=== PATIENT | male | born 1975 | race Caucasian/White ===

== ENCOUNTER 2023-08-24 15:34 | Inpatient (IN) | payer OTHER ==
[2023-08-24 16:32] VITALS: BMI 24.3
[2023-08-24] MEDS ORDERED: guaiFENesin 600 MG TABLET.ER (FP) PO PRN (19:11)
[2023-08-24] MEDS ORDERED: BENZONATATE 200 MG CAPSULE PO PRN (19:11)
[2023-08-24] MEDS ORDERED: ACETAMINOPHEN 325 MG TABLET (FP) PO PRN (19:11)
[2023-08-24] MEDS ORDERED: IBUPROFEN 400 MG TABLET (FP) PO PRN (19:11)
[2023-08-24] MEDS ORDERED: LOPERAMIDE HCL 2 MG CAPSULE PO PRN (19:11)
[2023-08-24] MEDS ORDERED: BENZOCAINE/MENTHOL (CHLORASEPTIC ) LOZENGE MM PRN (19:11)
[2023-08-24] MEDS ORDERED: P-EPHED 60MG/TRIPROLIDI 2.5MG TABLET PO PRN (19:11)
[2023-08-24] MEDS ORDERED: IBUPROFEN 600 MG TABLET (FP) PO PRN (19:11)
[2023-08-24] MEDS ORDERED: DOCUSATE SODIUM 100 MG CAPSULE (FP) PO PRN (19:11)
[2023-08-24] MEDS ORDERED: POLYETHYLENE GLYCOL (HEALTHYLAX) 3350 17 GM PACKET PO PRN (19:11)
[2023-08-24] MEDS: MELATONIN 5 MG TABLETS PO SCH (22:55)
[2023-08-24] MEDS: THIAMINE HCL 100 MG TABLET (FP) PO SCH (22:55)
[2023-08-24] MEDS: QUETIAPINE FUMARATE PO SCH ×2 (23:30)
[2023-08-24] MEDS: LURASIDONE HCL PO SCH (23:34)
[2023-08-24] MEDS: busPIRone HCL 10 MG TABLET (FP) PO ONE (23:34)
[2023-08-24] MEDS: TUBERCULIN PPD 5 TU/0.1ML SYRINGE (IN PATIENT USE ONLY) ID ONE (23:35)
[2023-08-25] MEDS: PRENATAL VITAMINS W/ FOLIC ACID TABLET (FP) PO SCH (09:49)
[2023-08-25 10:36] LABS: HEMATOCRIT 53.1 % (35.4-49); HEMOGLOBIN 18.1 GM/dL (11.7-16.9); MCH 30.8 pg (25.7-33.7); MCHC 34.2 g/dl (32.0-35.9); MEAN CELL VOLUME 90.3 fl (80-96); MEAN PLT VOLUME 10.2 fl (7.5-11.1); PLATELET COUNT 138 10^3/uL (134-434); RBC 5.89 M/mm3 (4.00-5.60); RDW 16.2 % (11.9-15.9); WHITE BLOOD COUNT 6.2 K/mm3 (4.0-10.0)
[2023-08-25 11:07] LABS: POTASSIUM 4.4 mmol/L (3.5-5.1)
[2023-08-25 11:08] LABS: CALCIUM 8.3 mg/dL (8.5-10.1)
[2023-08-25 11:09] LABS: ALBUMIN 3.3 g/dl (3.4-5.0)
[2023-08-25 11:12] LABS: CREATININE 1.1 mg/dL (0.55-1.3)
[2023-08-25 11:13] LABS: BILIRUBIN,TOTAL 0.7 mg/dL (0.2-1); BLOOD UREA NITROGEN 18.7 mg/dL (7-18); TOT PROT 6.4 g/dl (6.4-8.2)
[2023-08-25] MEDS: clonazePAM 0.5 MG ODT TABLETS SL SCH (21:27)
[2023-08-25] MEDS: busPIRone HCL 5 MG TABLET PO SCH (21:27)
[2023-08-26] MEDS: PARoxetine HCL 20 MG TABLET PO SCH (10:01)
[2023-08-26] MEDS ORDERED: NICOTINE 7 MG/24 HOURS TOPICAL PATCH TD PRN (10:45)
[2023-08-26] MEDS: LITHIUM CARBONATE 450 MG TABLET.ER PO SCH (11:00)
[2023-08-26] MEDS: NICOTINE POLACRILEX 4 MG GUM BUC PRN (11:33)
[2023-08-26] MEDS: clonazePAM 0.5 MG ODT TABLETS SL SCH (21:10)
[2023-08-26] MEDS: MAG HYDROX/AL HYDROX/SIMETH 30 ML UNIT-DOSE CUP PO PRN (23:01)
[2023-08-27] MEDS: PARoxetine HCL 20 MG TABLET PO SCH (10:00)
[2023-08-27 10:45] LABS: INR 1.17 (0.83-1.09); PROTHROMBIN TIME (PATIENT) 13.6 SEC (9.7-13.0)
[2023-08-27 11:30] LABS: MAGNESIUM 1.8 mg/dL (1.8-2.4)
[2023-08-27] MEDS: MAGNESIUM HYDROX 2400MG/30ML ORAL SUSPENSION 30 ML CUP PO PRN (16:46)
[2023-08-27] MEDS: LURASIDONE HCL 40 MG TABLET PO SCH (21:04)
[2023-08-30] MEDS: LACTULOSE 20 GM/30 ML UDC (FOR ORAL USE ONLY) PO SCH (14:34)
[2023-08-31] MEDS: PANTOPRAZOLE 20 MG TABLET PO SCH (08:44)
[2023-09-02 11:50] LABS: ALBUMIN 3.3 g/dl (3.4-5.0); BLOOD UREA NITROGEN 12.8 mg/dL (7-18); CALCIUM 8.3 mg/dL (8.5-10.1)
[2023-09-02 11:53] LABS: CREATININE 1.2 mg/dL (0.55-1.3); INR 1.17 (0.83-1.09); PROTHROMBIN TIME (PATIENT) 13.6 SEC (9.7-13.0)
[2023-09-02 11:55] LABS: BILIRUBIN,TOTAL 0.4 mg/dL (0.2-1); TOT PROT 6.5 g/dl (6.4-8.2)
[2023-09-03] MEDS: PREGABALIN 100 MG CAPSULE PO SCH (22:07)
[2023-09-04] MEDS: LURASIDONE HCL 20 MG TABLET PO SCH (21:14)
[2023-09-05] MEDS: PREGABALIN 100 MG CAPSULE PO SCH (10:05)
[2023-09-06] MEDS: PREGABALIN 50 MG CAPSULE PO SCH (09:53)
[2023-09-06] MEDS: PREGABALIN 100 MG CAPSULE PO SCH (21:07)
[2023-09-07] MEDS ORDERED: PREGABALIN 100 MG CAPSULE PO SCH (10:00)
[2023-09-08 06:40] VITALS: RESP 16
[2023-09-08 09:19] VITALS: BP 139/87; PULSE 105; TEMP 97.9
== END 2023-09-08 10:45 | disposition home or self-care (01) | DRG 772 ==
LOC: YASAS 15:34 → Y3NR 21:12 → Y3E 08-25 11:27
PROVIDERS: ADMIT Allergy & Immunology; ATTEND Psychiatry & Neurology Pain Medicine
PROC: HZ42ZZZ Group Counseling for Substance Abuse Treatment, Cognitive-Behavioral (ICD-10-PCS; principal; 2023-08-24)
DX: F14.20 Cocaine dependence, uncomplicated (principal); F31.9 Bipolar disorder, unspecified; F41.9 Anxiety disorder, unspecified; G47.00 Insomnia, unspecified; K21.9 Gastro-esophageal reflux disease without esophagitis; R79.89 Other specified abnormal findings of blood chemistry; Z72.0 Tobacco use; Z88.0 Allergy status to penicillin; Z88.6 Allergy status to analgesic agent
CPT/HCPCS: 36415; 80053; 80178; 80305; 82140; 82652; 83735; 84443; 85027; 85610; 86780; 87635; 93005; 93010